=== PATIENT | male | born 1945 | race Caucasian/White ===

== ENCOUNTER 2019-07-18 09:05 | Observation (INO) | payer MEDICARE ==
[2019-07-18] MEDS ORDERED: Midazolam* 1 MG/ML 5 ML VIAL (5 MG) ONE (11:46)
[2019-07-18] MEDS ORDERED: Heparin(*) 1000 UNIT/ML 10 ML VIAL CATH LAB IV ONE ×2 (11:46→12:21)
[2019-07-18] MEDS ORDERED: fentaNYL* 50 MCG/ML 2 ML VIAL (100 MCG VIAL) ONE (11:46)
[2019-07-18] MEDS ORDERED: Heparin 2 UNITS/ML IVPREMIX* 2,000 ML IV ONE (11:46)
[2019-07-18] MEDS ORDERED: Iohexol 350 (CONTRAST) 200 ML MDV IV ONE ×2 (11:46→12:21)
[2019-07-18] MEDS ORDERED: Lidocaine 1% INJ* 10 MG/ML 30 ML SDV ONE (11:46)
[2019-07-18] MEDS ORDERED: nitroGLYCERIN DRIP* 25,000 MCG/250 ML BTL ONE (11:46)
[2019-07-18] MEDS ORDERED: VERAPAMIL 2.5 MG/ML 2 ML VIAL ** 5 mg/2 ml ONE (11:46)
[2019-07-18] MEDS ORDERED: Ticagrelor* 90 MG TAB PO ONE (12:19)
[2019-07-18] MEDS ORDERED: Nitroglycerin TAB 0.4 MG* 0.4 MG TAB SL PRN (13:06)
[2019-07-18] MEDS ORDERED: Albuterol HFA INHALER* 8 gm MDI INH PRN (13:11)
[2019-07-18] MEDS ORDERED: Nystatin CREAM* 30 GM TOPICAL PRN (13:11)
[2019-07-18] MEDS ORDERED: NS 0.9% 1000 ML** 1,000 ML IV SCH (13:15)
[2019-07-18] MEDS: Gabapentin CAP(*) 100 MG PO SCH ×2 (15:10→20:05)
[2019-07-18] MEDS: Atorvastatin* 80 MG TAB PO SCH (18:19)
--- NOTE | 2019-07-18 19:36 | CATH ---
CC: Dr. Gómez; Lory Del Rio NP; Dr. Herrmann * STENT REPORT: DATE OF PROCEDURE: 07/18/19 PRIMARY CARE PHYSICIAN: Dr. Gómez. CARDIOLOGISTS: Lory Del Rio NP and Dr. Herrmann. PROCEDURES: Right radial artery access; bilateral selective coronary cineangiography; left heart catheterization; stent placement LAD, 2.75 x 24 Synergy drug-eluting stent. HISTORY: A 73-year-old male with diabetes, hypertension, obstructive sleep apnea, obesity, diastolic dysfunction, referred for catheterization for 2 months of limiting exertional dyspnea. LV systolic function is preserved, stress imaging showed a small apical area of ischemia. PROCEDURE ACCESS: Right radial artery sheath 6F slender. MEDICATIONS: 1. Subcu lidocaine. 2. IV Versed. 3. IV fentanyl. 4. Heparin 3000 units. 5. Verapamil 3 mg. 6. Nitroglycerin 300 mcg IA. 7. Brilinta 180 mg p.o. loading dose. 8. Heparin 11,000 units. DIAGNOSTIC CATHETER: 5F TIG4. GUIDING CATHETER: LAD, 6F VL 3.5. WIRE: 14 BMW used to deploy a 2.75 x 24 Synergy drug-eluting stent mid LAD after predilatation as the stent would not cross primarily. The stent was then postdilated in overlapping fashion with a 2.75 x 15 NC balloon to 20 atmospheres. Balloon inflation produced an entirely different chest pain syndrome than anything that he has ever experienced before. HEMODYNAMICS: Initial AO 87/53, LV 103/13-21, no aortic valve gradient on pullback. ANGIOGRAPHY: RCA: The RCA is heavily calcified, moderate in size, with proximal luminal irregularity. The PDA is moderate, very distal RCA supplies a number of small posterolateral branches which is preceded by an 80% to 90% stenosis, reference diameter beyond the stenosis is less than 2 mm, it was not treated. Left main: The left main is large, has no stenosis. LAD: The LAD is moderate, extends past the apex and supplies the inferoapical segment, LAD is heavily calcified, it supplies a large first diagonal after which the LAD has a gradually tapering up to 80% stenosis, more distally there is a 40% stenosis. Circumflex: The circumflex is not dominant, large with a moderate first marginal or ramus, supplies a large second marginal after which the AV groove circumflex has a 40% stenosis before supplying a large posterolateral. After predilatation, stent deployment and high pressure postdilatation, the stent is well expanded and apposed, there is no dissection, antegrade flow is normal. Intrastent filling defect resolved after redilatation. CONCLUSION: 1. Three-vessel coronary artery disease with high-grade mid LAD stenosis, high - grade very distal RCA stenosis poorly suited for revascularization because of small reference diameter and likely nonischemic distal circumflex stenosis. 2. Probable diastolic dysfunction. 3. Good angiographic result with drug-eluting stent placement mid LAD. 4. Successful right radial artery access. 5. Prolonged postdilatation was accompanied by an entirely different chest pain syndrome than anything that he has ever experienced. [id number]/[facility] #: [id number] EBONI
[2019-07-18] MEDS: Carvedilol TAB* 3.125 MG PO SCH (20:05)
[2019-07-18] MEDS: Ticagrelor* 90 MG TAB PO SCH (20:06)
[2019-07-18] MEDS ORDERED: Simvastatin (NF) 40 MG TAB PO SCH (21:00)
[2019-07-19 05:50] LABS: BUN/Creatinine Ratio 20.5 (8-20); Calcium 8.8 mg/dL (8.6-10.3); EGFR African American 102.4 (>60); EGFR Non-African American 84.7 (>60); Potassium 4.1 mmol/L (3.5-5.0)
[2019-07-19] MEDS: CMCS: SitaGLIPtin (NF) 100 MG TAB PO SCH (08:39)
[2019-07-19] MEDS: Gabapentin CAP(*) 100 MG PO SCH ×3 (08:40→20:34)
[2019-07-19] MEDS: Ticagrelor* 90 MG TAB PO SCH ×2 (08:40→20:34)
[2019-07-19] MEDS: glipiZIDE TAB.XL* 2.5 MG PO SCH (08:40)
[2019-07-19] MEDS: Carvedilol TAB* 3.125 MG PO SCH ×2 (08:40→20:33)
[2019-07-19] MEDS: Furosemide TAB* 20 MG PO SCH (08:40)
[2019-07-19] MEDS: Losartan TAB* 25 MG PO SCH (08:40)
[2019-07-19] MEDS: Aspirin 81 mg CHEW TAB* 81 MG TAB.CHEW PO SCH (08:40)
[2019-07-19] MEDS: Pioglitazone TAB* 30 MG PO SCH (09:00)
--- NOTE | 2019-07-19 09:24 | PN ---
<Pam Villalba - Last Filed: 07/19/19 09:19> Subjective Date of Service: 07/19/19 - abnormal ST s/p RADHIKA/LAD Interval History: Patient is s/p RADHIKA to LAD due to abnormal Stress test. 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 He reports mild intermittent chest pain described as a dull ache since [facility], but adds it is very brief and resolves within 10 seconds. No c/o sob, dizziness. He has not been out of bed. Denies right radial access pain. Medications Active Medications: Albuterol (Ventolin Hfa Inhaler*) 2 puff INH Q4H PRN PRN Reason: SOB/WHEEZING Aspirin (Aspirin 81 Mg Chew Tab*) 81 mg PO DAILY [facility] Last Admin: 07/19/19 08:40 Dose: 81 mg Atorvastatin Calcium (Lipitor*) 80 mg PO 1700 [facility] Last Admin: 07/18/19 18:19 Dose: 80 mg Carvedilol (Coreg Tab*) 3.125 mg PO BID [facility] Last Admin: 07/19/19 08:40 Dose: 3.125 mg Dexlansoprazole (Dexilant (Nf)) 30 mg PO DAILY [facility] Furosemide (Lasix Tab*) 20 mg PO DAILY [facility] Last Admin: 07/19/19 08:40 Dose: 20 mg Gabapentin (Neurontin Cap(*)) 100 mg PO TID [facility] Last Admin: 07/19/19 08:40 Dose: 100 mg Glipizide (Glucotrol Xl*) 2.5 mg PO DAILY [facility] Last Admin: 07/19/19 08:40 Dose: 2.5 mg Losartan Potassium (Cozaar Tab*) 25 mg PO DAILY [facility] Last Admin: 07/19/19 08:40 Dose: 25 mg Nitroglycerin (Nitroglycerin Tab 0.4 Mg*) 0.4 mg SL Q5M PRN PRN Reason: ANGINA Nystatin (Nystatin Cream*) 1 applic TOPICAL BID PRN PRN Reason: RASH Pioglitazone HCl (Actos Tab*) 30 mg PO DAILY [facility] Sitagliptin Phosphate (Januvia (Nf)) 100 mg PO DAILY [facility]; Protocol Last Admin: 07/19/19 08:39 Dose: 100 mg Ticagrelor (Brilinta*) 90 mg PO BID [facility] Last Admin: 02/05/20 08:40 Dose: 90 mg Objective Vital Signs: Temp Pulse Resp BP Pulse Ox 98.5 F 60 12 127/70 97 07/19/19 07:52 07/19/19 07:00 07/19/19 07:39 07/19/19 07:00 07/19/19 07:00 Oxygen Devices in Use Now: CPAP Appearance: sitting upright in bed, obese pleasant male patient. Ears/Nose/Mouth/Throat: NL Teeth, Lips, Gums, Clear Oropharnyx, Mucous Membranes Moist Neck: NL Appearance and Movements; NL JVP, Trachea Midline Respiratory: Symmetrical Chest Expansion and Respiratory Effort, Clear to Auscultation Cardiovascular: NL Sounds; No Murmurs; No JVD, No Edema Extremities: No Edema Skin: No Rash or Ulcers, - - right radial access site 3+ radial pulse, non tender to palpation, no oozing, no hematoma Neurological: Alert and Oriented x 3 Lines/Tubes/Other Access: Clean, Dry and Intact Peripheral IV Laboratory Results: 07/19/19 04:46 Laboratory Results - last 24 hr 07/18/19 07/18/19 07/19/19 12:30 12:44 04:46 POC Activ Clotting Time 227 324 Sodium 137 Potassium 4.1 Chloride 107 Carbon Dioxide 23 Anion Gap 7 BUN 18 Creatinine 0.88 Est GFR ( Amer) 102.4 Est GFR (Non-Af Amer) 84.7 BUN/Creatinine Ratio 20.5 H Glucose 125 H Calcium 8.8 Diagnostic Imaging: Cardiac Catheterization Report Patient: SANGEETA BARBOUR /Age: 0308/23/1945 73 Medical Record#: [id number] Admission Date: 07/18/19 Provider: Laura Austin MD CC: Dr. Gómez; Lory Del Rio NP; Dr. Herrmann * STENT REPORT: DATE OF PROCEDURE: 07/18/19 PRIMARY CARE PHYSICIAN: Dr. Gómez. CARDIOLOGISTS: Lory Del Rio NP and Dr. Herrmann. PROCEDURES: Right radial artery access; bilateral selective coronary cineangiography; left heart catheterization; stent placement LAD, 2.75 x 24 Synergy drug-eluting stent. HISTORY: A 73-year-old male with diabetes, hypertension, obstructive sleep apnea, obesity, diastolic dysfunction, referred for catheterization for 2 months of limiting exertional dyspnea. LV systolic function is preserved, stress imaging showed a small apical area of ischemia. PROCEDURE ACCESS: Right radial artery sheath 6F slender. MEDICATIONS: 1. Subcu lidocaine. 2. IV Versed. 3. IV fentanyl. 4. Heparin 3000 units. 5. Verapamil 3 mg. 6. Nitroglycerin 300 mcg IA. 7. Brilinta 180 mg p.o. loading dose. 8. Heparin 11,000 units. DIAGNOSTIC CATHETER: 5F TIG4. GUIDING CATHETER: LAD, 6F VL 3.5. WIRE: 14 [employer] used to deploy a 2.75 x 24 Synergy drug-eluting stent mid LAD after predilatation as the stent would not cross primarily. The stent was then postdilated in overlapping fashion with a 2.75 x 15 NC balloon to 20 atmospheres. Balloon inflation produced an entirely different chest pain syndrome than anything that he has ever experienced before. HEMODYNAMICS: Initial AO 87/53, LV 103/13-21, no aortic valve gradient on pullback. This report is only to be considered final once signed by the Provider(s) as displayed in the "<Electronically Signed by >" field (s). Absence of a signature indicates the report is in a draft status and still needs to be finalized. In the event this document was created by someone other than the signing Provider, the individual initiating the document will be listed in the "Entered by:" or "Dictated by:" sanchez. 1 of 2 EKG Data: 07/19/2019; Sinus rhythm rate 69 with new anterolateral TWI compared to prior ECGs Telemetry reviewed; Sinus 50-60's, no VT Assessment/Plan #1 Abnormal stress test 06/23/2019 suggestive of a small area of reversible ischemia involving the apex. He had been experiencing GARCIA and atypical chest pain. He underwent C 07/18/2019 that resulted in [id number] RADHIKA to LAD. High grade distal lesion not amendable to PCI. There is also a 40% distal Lcx lesion which will be treated medically. He has been c/o intermittent dull chest pain lasting < 10 seconds at times since [facility]. Today's ECG shows new anterolateral TWI. Will update Troponin. unclear if there was a jailed diag with PCI to LAD. Dr. Austin updated. Patient on ASA 81/day, Brilinta 90mg PO BID, Coreg and now high intensity statin therapy. Will follow post troponin drawn and re evaluate. #2 h/o Type 2 DM; To resume medications however, He was asked to resume Metformin on 07/21/2019. Outpatient BMP placed for 07/24/2019. #3 h/o Thyroid disease; TSH 8.78 05/2019. I encouraged him to f/u with PCP #4 h/o HLD; Now on Lipitor 80QHS. LDL goal < 70 will need repeat FLP/LFT in 6 weeks time. #5 Diastolic dysfunction; Compensated on exam will continue therapy. BP controlled. #6 Disposition pending course, will update troponin and follow patient. Case discussed with Dr. Austin who agrees with above assessment and plan. Attending: Laura Austin <Laura Austin - Last Filed: 07/19/19 17:48> Medications Active Medications: Albuterol (Ventolin Hfa Inhaler*) 2 puff INH Q4H PRN PRN Reason: SOB/WHEEZING Aspirin (Aspirin 81 Mg Chew Tab*) 81 mg PO DAILY [facility] Last Admin: 07/19/19 08:40 Dose: 81 mg Atorvastatin Calcium (Lipitor*) 80 mg PO 1700 [facility] Last Admin: 07/19/19 17:41 Dose: 80 mg Carvedilol (Coreg Tab*) 3.125 mg PO BID [facility] Last Admin: 07/19/19 08:40 Dose: 3.125 mg Dexlansoprazole (Dexilant (Nf)) 30 mg PO DAILY [facility] Last Admin: 07/19/19 11:43 Dose: Not Given Furosemide (Lasix Tab*) 20 mg PO DAILY [facility] Last Admin: 07/19/19 08:40 Dose: 20 mg Gabapentin (Neurontin Cap(*)) 100 mg PO TID [facility] Last Admin: 07/19/19 14:43 Dose: 100 mg Glipizide (Glucotrol Xl*) 2.5 mg PO DAILY [facility] Last Admin: 07/19/19 08:40 Dose: 2.5 mg Losartan Potassium (Cozaar Tab*) 25 mg PO DAILY [facility] Last Admin: 07/19/19 08:40 Dose: 25 mg Nitroglycerin (Nitroglycerin Tab 0.4 Mg*) 0.4 mg SL Q5M PRN PRN Reason: ANGINA Nystatin (Nystatin Cream*) 1 applic TOPICAL BID PRN PRN Reason: RASH Pioglitazone HCl (Actos Tab*) 30 mg PO DAILY [facility] Last Admin: 07/19/19 09:00 Dose: 30 mg Sitagliptin Phosphate (Januvia (Nf)) 100 mg PO DAILY [facility]; Protocol Last Admin: 07/19/19 08:39 Dose: 100 mg Ticagrelor (Brilinta*) 90 mg PO BID [facility] Last Admin: 07/19/19 08:40 Dose: 90 mg Objective Vital Signs: Temp Pulse Resp BP Pulse Ox 96 F 73 16 121/62 96 07/19/19 15:50 07/19/19 15:50 07/19/19 15:50 07/19/19 15:50 07/19/19 15:50 Laboratory Results: 07/19/19 04:46 TSH 4.64 mcIU/mL (0.34-5.60) 07/19/19 09:50 07/19/19 07/19/19 09:40 16:05 Troponin I 1.17 H* 0.85 H* Assessment/Plan Post PCI trop likely due to embolization of plaque material prolapsing thru stent, resolved w further POBA. Stable, asymptomatic, anticipate dc in am
[2019-07-19 10:17] LABS: Troponin I 1.17 ng/mL (<0.03)
[2019-07-19 10:54] LABS: TSH (Thyroid Stimulating Horm) 4.64 mcIU/mL (0.34-5.60)
[2019-07-19 10:55] LABS: Free T3 3.8 pg/mL (2.5-3.9)
[2019-07-19 10:56] LABS: Free T4 0.95 ng/dL (0.61-1.12)
[2019-07-19] MEDS: Dexlansoprazole (NF) 30 MG CAP PO SCH (11:43)
[2019-07-19 16:46] LABS: Troponin I 0.85 ng/mL (<0.03)
[2019-07-19] MEDS: Atorvastatin* 80 MG TAB PO SCH (17:41)
[2019-07-20] MEDS: Losartan TAB* 25 MG PO SCH (08:33)
[2019-07-20] MEDS: CMCS: SitaGLIPtin (NF) 100 MG TAB PO SCH (08:33)
[2019-07-20] MEDS: Pioglitazone TAB* 30 MG PO SCH (08:33)
[2019-07-20] MEDS: Furosemide TAB* 20 MG PO SCH (08:33)
[2019-07-20] MEDS: Ticagrelor* 90 MG TAB PO SCH (08:34)
[2019-07-20] MEDS: Dexlansoprazole (NF) 30 MG CAP PO SCH (08:34)
[2019-07-20] MEDS: Aspirin 81 mg CHEW TAB* 81 MG TAB.CHEW PO SCH (08:34)
[2019-07-20] MEDS: Gabapentin CAP(*) 100 MG PO SCH (08:34)
[2019-07-20] MEDS: glipiZIDE TAB.XL* 2.5 MG PO SCH (08:34)
[2019-07-20] MEDS: Carvedilol TAB* 3.125 MG PO SCH (08:34)
[2019-07-20 11:49] VITALS: BP 103/59
--- NOTE | 2019-07-20 12:47 | DS ---
AMENDED REPORT NOW INCLUDES DESIGNATED COSIGNER - ESIGNED BEFORE ADJUSTMENT CC: Dr. Fuad Gómez; Dr. Ralf Herrmann * DISCHARGE SUMMARY: DATE OF ADMISSION: 07/18/19 DATE OF DISCHARGE: 07/20/19 ATTENDING PHYSICIAN: Laura Austin MD * (DICTATED BY NETTE VÁZQUEZ NP) PRIMARY PHYSICIAN: Dr. Fuad Gómez. PRIMARY COMPUTERIZED MACHINE FABRIC CUTTER: Dr. Ralf Herrmann. ADMITTING DIAGNOSES: 1. Abnormal nuclear stress test suggestive of apical ischemia with CC Class II angina, here for elective cardiac catheterization. 2. History of diabetes. 3. History of thyroid disease. 4. History of hyperlipidemia. 5. History of diastolic dysfunction. DISCHARGE DIAGNOSES: 1. Abnormal stress test, 06/23/19, suggestive of a small area of reversible ischemia involving the apex. The patient is status post 2.75 x 24 mm drug- eluting stent to left anterior descending artery with known high-grade distal lesion, not amenable to percutaneous intervention involving right coronary artery, in addition to 40% left circ lesion. The patient is now on aspirin 81 mg a day in combination with Brilinta 90 mg a day. Postcatheterization, he had new anterolateral T wave inversion noted with complaints of atypical chest pain and troponin elevation, which was felt to be related embolization of plaque material prolapsing through stent that resolved with further POBA. The patient is stable and asymptomatic today, 07/20/19. 2. Newly found coronary artery disease, on aspirin, statin, beta-jonathan and Brilinta therapy. 3. History of hyperlipidemia, now on statin therapy. Goal LDL is less than 70. We will need follow up liver function tests and fasting lipid panel in 6 weeks' time. 4. History of diabetes, on multiple oral glycemic medications. He was instructed to resume metformin starting 07/21/19. PROCEDURES PERFORMED: The patient underwent a left heart catheterization by Dr. Laura Austin on 07/18/19; per report: 1. LAD is moderate, extends past the apex and supplies the inferoapical segment , LAD is heavily calcified. It supplies a large first diagonal after which the LAD has a gradually tapering up to 80% stenosis, more distally there was 40% stenosis. 2. Left main: Large, no stenosis. 3. Left circumflex is not dominant, large with a moderate first marginal or ramus, supplies a large second marginal after which the AV groove circumflex has a 40% stenosis before supplying a large posterolateral. 4. Right coronary artery is heavily calcified, moderate in size, with proximal luminal irregularity. The PDA is moderate, very distal RCA supplies a number of small posterolateral branches, which is preceded by an 80% to 90% lesion, reference diameter beyond the stenosis is less than 2 mm, thus was not treated with PCI. 5. Interventions performed: The patient underwent successful 2.75 x 24 mm Synergy drug-eluting stent placement to mid LAD. COMPLICATIONS: Postcardiac catheterization the patient had a new anterolateral T wave inversion with complaints of atypical chest pain. Troponin peaked at 1.17. This was felt to be related to embolization of plaque material prolapsing through stent, resolved with further POBA. The patient has not had recurrent chest pain since 07/19/19. COURSE OF HOSPITAL STAY: This is a pleasant 73-year-old male patient, who follows Dr. Ralf Hermrann of our practice, due to complaints of dyspnea on exertion and atypical chest pain. He was risk stratified with a nuclear stress test on 06/23/19. Per report, there was a small territory of reversible ischemia involving the apical region. The patient presented to [facility] for elective cardiac catheterization on 07/18/19. Prior to having procedure performed the patient had basic blood work obtained on 07/17/19; hemoglobin was 13.6, platelets 211, creatinine 1.12. The patient underwent the above-mentioned procedure. Postprocedure had complaints of atypical chest pain thus he was observed in the ICU overnight. On 07/19/19, he continued to complain of transient brief episodes of atypical chest discomfort. ECG was updated and revealed new anterolateral T-wave inversion. Troponin was updated and was elevated at 1.17 and was trending down thereafter. He has not had any recurrent complaints of chest pain. EKG changes and troponin elevation were felt to be related embolization of plaque material prolapsing through stent that resolved with further POBA. The patient is stable and asymptomatic, has been up and ambulating in halls with no recurrent complaints of chest discomfort or dyspnea on exertion. Today's vital signs were reviewed. Temperature is 97.8, pulse 89, respirations 18, oxygenation 96% on room air, blood pressure 118/62. There is no morning blood work to review today. EKG on 07/20/19, was reviewed. The patient is in sinus rhythm, rate 68 with known anterolateral T- wave inversion consistent with postcardiac catheterization ECG with no recurrent complaints of chest pain since 07/19/19. Right radial access examined. No evidence of hematoma, no thrill, 3+ right radial pulse palpated. The patient will be sent home in stable condition today. DISCHARGE MEDICATIONS: 1. Aspirin 81 mg a day. 2. Lipitor 80 mg p.o. q.h.s. 3. Coreg 3.125 mg p.o. b.i.d. 4. Lasix 20 mg a day. 5. Glipizide 2.5 mg a day. 6. Gabapentin 100 mg p.o. t.i.d. 7. Brilinta 90 mg p.o. b.i.d. 8. Januvia 100 mg p.o. daily. 9. Pioglitazone 30 mg a day. 10. Losartan 25 mg a day. 11. Dexilant 30 mg a day. 12. Albuterol HFA 2 puffs inhalation q.4h p.r.n. BLOOD WORK TO BE OBTAINED AFTER DISCHARGE: The patient is to have a repeat BMP to reevaluate renal function on 07/24/19, please note the outpatient script was placed through [facility]. ACTIVITY RESTRICTION: The patient was advised to not to drive for 48 hours, not to lift more than 5 to 10 pounds for 5 to 7 days. He may shower, but not soak right radial access site wound or take a bath. FOLLOWUP APPOINTMENTS: 1. The patient is to follow up with PCP, Dr. Fuad Gómez in 7 to [address] Hermes Black on 07/25/19 at 2:45 p.m. at our medical office building. DISCHARGE CONDITION: Stable to be discharged home. Dr. Laura Austin has personally seen and examined the patient and agrees with the above plan. NETTE VÁZQUEZ, LANETTE [id number]/[facility] #: [id number] [id number]
== END 2019-07-20 13:13 | disposition home or self-care (01) ==
LOC: CHICATH 09:05 → ICU 13:06 → MEDTELE 07-19 11:04
PROVIDERS: ADMIT Internal Medicine Cardiovascular Disease; ATTEND Internal Medicine Cardiovascular Disease
DX: R94.39 Abnormal result of other cardiovascular function study (principal); R06.00 Dyspnea, unspecified; I25.10 Atherosclerotic heart disease of native coronary artery without angina pectoris; I44.4 Left anterior fascicular block; R07.89 Other chest pain; G47.33 Obstructive sleep apnea (adult) (pediatric); T78.40XA Allergy, unspecified, initial encounter; E11.9 Type 2 diabetes mellitus without complications; E78.5 Hyperlipidemia, unspecified; E78.00 Pure hypercholesterolemia, unspecified; E03.9 Hypothyroidism, unspecified; I11.0 Hypertensive heart disease with heart failure; I50.30 Unspecified diastolic (congestive) heart failure; E66.9 Obesity, unspecified; R60.9 Edema, unspecified; Z79.82 Long term (current) use of aspirin; Z79.899 Other long term (current) drug therapy; Z79.84 Long term (current) use of oral hypoglycemic drugs; R94.31 Abnormal electrocardiogram [ECG] [EKG]; Z96.659 Presence of unspecified artificial knee joint
CPT/HCPCS: 36415; 80048; 84439; 84443; 84481; 84484; 85347; 87641; 93005; 93458; 99156; 99157; A9270-GY; C1725; C1769; C1876; C1887; C9600-LD; G0378; J1644; J2250; J3010

== ENCOUNTER 2022-05-09 20:38 | Inpatient (IN) ==
[2022-05-09] MEDS ORDERED: Lactated Ringers 1000 ml BAG 1,000 ML IV ONE (21:15)
[2022-05-09 21:36] LABS: ABS Lymphocytes 0.3 10^3/ul (1.0-4.8); ABS Monocytes 0.9 10^3/ul (0-0.8); Eosinophil % 0.1 %; Hematocrit 40 % (42-52); Hemoglobin 13.1 g/dL (14.0-18.0); Lymphocyte % 1.8 %; Mean Corpuscular HGB Conc 32 g/dL (31-36); Mean Corpuscular Hemoglobin 30 pg (27-31); Mean Corpuscular Volume 92 fL (80-94); Mean Platelet Volume 7.1 fL (7.4-10.4); Platelet Count 226 10^3/uL (150-450); Red Blood Count 4.38 10^6 /uL (4.18-5.48); Red Cell Distribution Width 15 % (10-15); White Blood Count 15.2 10^3/uL (3.5-10.8)
[2022-05-09 21:47] LABS: Urine Appearance Cloudy; Urine Bilirubin Negative (Negative); Urine Blood 2+ (Negative); Urine Color Yellow; Urine Glucose Negative (Negative); Urine Ketones 1+ (Negative); Urine Nitrite Negative (Negative); Urine Protein 1+(30 mg/dL) (Negative); Urine Urobilinogen Negative (Negative)
[2022-05-09 21:52] LABS: Urine Bacteria Absent (Absent); Urine Red Blood Cell 2+(6-10/hpf) (Absent); Urine Squamous Epithelial Cell Present (Absent); Urine White Blood Cell Trace(0-5/hpf) (Absent)
[2022-05-09 22:03] LABS: ALT 8 U/L (7-52); AST 15 U/L (13-39); Albumin 3.6 g/dL (3.2-5.2); Albumin/Globulin Ratio 1.2 (1-3); Alkaline Phosphatase 80 U/L (35-149); Anion Gap 9 mmol/L (2-11); Blood Urea Nitrogen 30 mg/dL (6-24); CO2 Carbon Dioxide 28 mmol/L (22-32); Chloride 103 mmol/L (101-111); Glucose 133 mg/dL (70-100); Lipase < 10 U/L (11.0-82.0); Potassium 3.9 mmol/L (3.5-5.0); Sodium 140 mmol/L (135-145); Total Protein 6.6 g/dL (6.4-8.9); eGFR CKD-EPI 75.7 (>60)
[2022-05-09] MEDS ORDERED: NIRMATRELVIR/RITONAVIR 1 PAK eGFR > 60 PO ONE (22:21)
[2022-05-09] MEDS ORDERED: Iodixanol (CONTRAST) 320 MG/ML 100 ML SDV IV ONE (22:41)
[2022-05-10] MEDS ORDERED: Remdesivir 100 mg Vial 200 MG in NS 0.9% 250 ml 210 ML IV ONE (00:58)
[2022-05-10] MEDS ORDERED: NS 0.9% 1000 ml BAG 1,000 ML IV SCH (01:00)
[2022-05-10] MEDS ORDERED: Dextran 70/Hypromellose Tears Eye Drops 15 ml BTL (for Artificials Tears) BOTH EYES PRN (01:02)
[2022-05-10] MEDS ORDERED: Dextrose 50% Syringe 50 ml 25 GM/50 ML SYRINGE IV PUSH PRN (01:10)
[2022-05-10] MEDS: Enoxaparin 40 MG/0.4 ML SYR SUBCUT SCH (01:56)
[2022-05-10 05:58] LABS: ABS Lymphocytes 0.3 10^3/ul (1.0-4.8); ABS Monocytes 0.5 10^3/ul (0-0.8); ABS Neutrophils 13.4 10^3/ul (1.5-7.7); Eosinophil % 0.1 %; Hematocrit 39 % (42-52); Hemoglobin 12.7 g/dL (14.0-18.0); Lymphocyte % 1.8 %; Mean Corpuscular HGB Conc 32 g/dL (31-36); Mean Corpuscular Hemoglobin 30 pg (27-31); Mean Corpuscular Volume 92 fL (80-94); Mean Platelet Volume 7.1 fL (7.4-10.4); Platelet Count 205 10^3/uL (150-450); Red Blood Count 4.25 10^6 /uL (4.18-5.48); Red Cell Distribution Width 15 % (10-15); White Blood Count 14.1 10^3/uL (3.5-10.8)
[2022-05-10 06:04] LABS: INR 1.01 (0.89-1.11)
[2022-05-10 06:26] LABS: Albumin 3.3 g/dL (3.2-5.2); Albumin/Globulin Ratio 1.1 (1-3); Calcium 8.8 mg/dL (8.6-10.3); Globulin 2.9 g/dL (2-4); Total Bilirubin 0.5 mg/dL (0.2-1.0); Total Protein 6.2 g/dL (6.4-8.9); eGFR CKD-EPI 86.8 (>60)
[2022-05-10] MEDS: Polymyx/Trimethoprim OPTH.SOL 1 BTL RIGHT EYE SCH ×4 (10:34→21:49)
[2022-05-11] MEDS: Enoxaparin 40 MG/0.4 ML SYR SUBCUT SCH ×2 (01:09→23:51)
[2022-05-11 06:42] LABS: INR 1.04 (0.89-1.11)
[2022-05-11 07:03] LABS: Hematocrit 39 % (42-52); Mean Corpuscular HGB Conc 33 g/dL (31-36); Mean Corpuscular Hemoglobin 30 pg (27-31); Mean Corpuscular Volume 91 fL (80-94); Platelet Count 249 10^3/uL (150-450); Red Cell Distribution Width 15 % (10-15); White Blood Count 10.8 10^3/uL (3.5-10.8)
[2022-05-11 07:20] LABS: Albumin 3.4 g/dL (3.2-5.2); Albumin/Globulin Ratio 1.1 (1-3); Calcium 9.2 mg/dL (8.6-10.3); Total Bilirubin 0.4 mg/dL (0.2-1.0); Total Protein 6.4 g/dL (6.4-8.9); eGFR CKD-EPI 89.8 (>60)
[2022-05-11] MEDS: Polymyx/Trimethoprim OPTH.SOL 1 BTL RIGHT EYE SCH ×4 (10:00→21:37)
[2022-05-11] MEDS: Remdesivir 100 mg Vial 100 MG in NS 0.9% 250 ml 230 ML IV SCH (11:42)
[2022-05-12 06:45] LABS: ABS Lymphocytes 0.7 10^3/ul (1.0-4.8); ABS Monocytes 0.8 10^3/ul (0-0.8); ABS Neutrophils 6.3 10^3/ul (1.5-7.7); Hematocrit 41 % (42-52); Hemoglobin 13.6 g/dL (14.0-18.0); Lymphocyte % 8.7 %; Mean Corpuscular HGB Conc 34 g/dL (31-36); Mean Corpuscular Hemoglobin 30 pg (27-31); Mean Corpuscular Volume 90 fL (80-94); Mean Platelet Volume 7.4 fL (7.4-10.4); Platelet Count 262 10^3/uL (150-450); Red Blood Count 4.53 10^6 /uL (4.18-5.48); Red Cell Distribution Width 15 % (10-15); White Blood Count 7.8 10^3/uL (3.5-10.8)
[2022-05-12 06:46] LABS: INR 1.04 (0.89-1.11)
[2022-05-12 07:33] LABS: Albumin 3.4 g/dL (3.2-5.2); Albumin/Globulin Ratio 1.2 (1-3); Calcium 9.2 mg/dL (8.6-10.3); Globulin 2.9 g/dL (2-4); Potassium 3.9 mmol/L (3.5-5.0); Total Bilirubin 0.5 mg/dL (0.2-1.0); Total Protein 6.3 g/dL (6.4-8.9)
[2022-05-12] MEDS: Polymyx/Trimethoprim OPTH.SOL 1 BTL RIGHT EYE SCH ×4 (09:50→21:08)
[2022-05-12] MEDS: Remdesivir 100 mg Vial 100 MG in NS 0.9% 250 ml 230 ML IV SCH (09:50)
[2022-05-12 10:21] LABS: eGFR CKD-EPI 86.8 (>60)
[2022-05-12] MEDS: cefTRIAXone 1 gm/50 mL D5W 1 GM/50 ML BAG IV SCH (12:10)
[2022-05-12] MEDS: DOXYcycline 100 MG in NS 0.9% 250 ml 250 ML IVPB SCH ×2 (12:53→21:06)
[2022-05-12] MEDS: Enoxaparin 40 MG/0.4 ML SYR SUBCUT SCH (23:42)
[2022-05-13 06:36] LABS: ABS Eosinophils 0.1 10^3/ul (0-0.6); ABS Monocytes 1.1 10^3/ul (0-0.8); ABS Neutrophils 7.8 10^3/ul (1.5-7.7); Eosinophil % 0.5 %; Hematocrit 43 % (42-52); Lymphocyte % 9.9 %; Mean Corpuscular HGB Conc 33 g/dL (31-36); Mean Corpuscular Hemoglobin 30 pg (27-31); Mean Corpuscular Volume 91 fL (80-94); Mean Platelet Volume 7.6 fL (7.4-10.4); Platelet Count 262 10^3/uL (150-450); Red Blood Count 4.71 10^6 /uL (4.18-5.48); Red Cell Distribution Width 15 % (10-15); White Blood Count 9.9 10^3/uL (3.5-10.8)
[2022-05-13 07:00] LABS: INR 1.02 (0.89-1.11)
[2022-05-13 07:07] LABS: Albumin 3.4 g/dL (3.2-5.2); Albumin/Globulin Ratio 1.2 (1-3); Globulin 2.8 g/dL (2-4); Magnesium 1.6 mg/dL (1.9-2.7); Potassium 3.8 mmol/L (3.5-5.0); Total Bilirubin 0.5 mg/dL (0.2-1.0); Total Protein 6.2 g/dL (6.4-8.9); eGFR CKD-EPI 91.5 (>60)
[2022-05-13] MEDS: Remdesivir 100 mg Vial 100 MG in NS 0.9% 250 ml 230 ML IV SCH (09:04)
[2022-05-13] MEDS: CMCS:SitaGLIPtin 100 mg TAB (NF) PO SCH (09:06)
[2022-05-13] MEDS: Polymyx/Trimethoprim OPTH.SOL 1 BTL RIGHT EYE SCH ×4 (09:09→19:38)
[2022-05-13] MEDS ORDERED: Magnesium Sulfate 2 gm BAG 2 GM/50 ML BAG IVPB ONE (11:27)
[2022-05-13] MEDS ORDERED: Lactated Ringers 1000 ml BAG 1,000 ML IV ONE (11:56)
[2022-05-13] MEDS: cefTRIAXone 1 gm/50 mL D5W 1 GM/50 ML BAG IV SCH ×2 (14:25→14:31)
[2022-05-13] MEDS: DOXYcycline 100 MG in NS 0.9% 250 ml 250 ML IVPB SCH ×2 (14:26→15:42)
[2022-05-14] MEDS: Enoxaparin 40 MG/0.4 ML SYR SUBCUT SCH (01:59)
[2022-05-14] MEDS: DOXYcycline 100 MG in NS 0.9% 250 ml 250 ML IVPB SCH ×2 (02:00→14:45)
[2022-05-14 07:09] LABS: Hematocrit 42 % (42-52); Hemoglobin 14.4 g/dL (14.0-18.0); Mean Corpuscular HGB Conc 34 g/dL (31-36); Mean Corpuscular Hemoglobin 31 pg (27-31); Mean Corpuscular Volume 90 fL (80-94); Mean Platelet Volume 7.4 fL (7.4-10.4); Platelet Count 257 10^3/uL (150-450); Red Blood Count 4.67 10^6 /uL (4.18-5.48); Red Cell Distribution Width 15 % (10-15); White Blood Count 9.9 10^3/uL (3.5-10.8)
[2022-05-14 07:31] LABS: INR 1.03 (0.89-1.11)
[2022-05-14 07:52] LABS: Albumin 3.1 g/dL (3.2-5.2); CO2 Carbon Dioxide 20 mmol/L (22-32); Calcium 8.6 mg/dL (8.6-10.3); Chloride 104 mmol/L (101-111); Sodium 138 mmol/L (135-145)
[2022-05-14 07:54] LABS: Anion Gap 14 mmol/L (2-11)
[2022-05-14 07:58] LABS: ALT 12 U/L (7-52); Albumin/Globulin Ratio 1.2 (1-3); Alkaline Phosphatase 67 U/L (35-149); Blood Urea Nitrogen 27 mg/dL (6-24); Globulin 2.6 g/dL (2-4); Glucose 123 mg/dL (70-100); Total Protein 5.7 g/dL (6.4-8.9); eGFR CKD-EPI 89.8 (>60)
[2022-05-14] MEDS: Remdesivir 100 mg Vial 100 MG in NS 0.9% 250 ml 230 ML IV SCH (08:52)
[2022-05-14] MEDS: CMCS:SitaGLIPtin 100 mg TAB (NF) PO SCH (08:52)
[2022-05-14] MEDS: Polymyx/Trimethoprim OPTH.SOL 1 BTL RIGHT EYE SCH ×2 (08:55→12:55)
[2022-05-14 09:33] LABS: ABS Eosinophils 0.1 10^3/ul (0-0.6); ABS Monocytes 1.2 10^3/ul (0-0.8); ABS Neutrophils 7.6 10^3/ul (1.5-7.7); Eosinophil % 1.3 %; Lymphocyte % 10.6 %; Nucleated Red Blood Cells % 0.2
[2022-05-14 10:54] LABS: Potassium Redraw 4.3 mmol/L (3.5-5.0)
[2022-05-14 11:54] VITALS: BP 108/65
[2022-05-14] MEDS: cefTRIAXone 1 gm/50 mL D5W 1 GM/50 ML BAG IV SCH (14:45)
== END 2022-05-14 14:50 | DRG 177 ==
LOC: ED 20:38 → SUATTDRO 05-10 00:46 → EDHOLD 05-10 00:46 → MED 05-11 14:02
PROVIDERS: ADMIT Internal Medicine; ATTEND Internal Medicine